=== PATIENT | female | born 1970 | race Asian ===

== ENCOUNTER 2019-01-13 08:02 | Outpatient (CLI) | payer OTHER | END 2019-01-13 23:59 | disposition home or self-care (01) | LOC: CFH 08:02 | PROVIDERS: ATTEND Nurse Practitioner | DX: Z12.31 Encounter for screening mammogram for malignant neoplasm of breast (principal) | CPT/HCPCS: 77067 ==

== ENCOUNTER → 2020-03-06 | Outpatient (CLI) | payer OTHER ==
[~2020-03-06] MED LIST: LEVO200T PO; MV-M1TAB16 PO; ROSU40TA PO; TRAN650T3 PO; UBID100C41 PO
[2020-03-06 16:57] LABS: BASOPHILS # (AUTO) 0.02 x10^3/uL (0-0.1); BASOPHILS % (AUTO) 0 % (0-1); EOSINOPHILS # (AUTO) 0.37 x10^3/uL (0-0.4); EOSINOPHILS % (AUTO) 5 % (1-7); LYMPHOCYTES # (AUTO) 2.57 x10^3/uL (1-3.4); LYMPHOCYTES % (AUTO) 35 % (22-44); MD NO; MEAN CORPUSCULAR HEMOGLOBIN 29.7 pg (27.0-34.8); MEAN CORPUSCULAR HGB CONC 33.3 g/dL (32.4-35.8); MEAN CORPUSCULAR VOLUME 89.3 fL (80-100); MEAN PLATELET VOLUME 8.2 fL (7.4-10.4); MONOCYTES # (AUTO) 0.41 x10^3/uL (0.2-0.8); MONOCYTES % (AUTO) 6 % (2-9); NEUTROPHILS # (AUTO) 3.98 x10^3/uL (1.8-6.8); NEUTROPHILS % (AUTO) 54 % (42-75); PLATELET COUNT 303 x10^3/uL (130-400); RED BLOOD COUNT 4.08 x10^6/uL (3.82-5.3)
[2020-03-06 17:05] LABS: ALANINE AMINOTRANSFERASE 22 U/L (12-78); ALBUMIN 3.5 g/dL (3.4-5.0); CALCIUM 10.2 mg/dL (8.5-10.1); CREATININE 0.79 mg/dL (0.55-1.02)
[2020-03-06 17:10] LABS: ALKALINE PHOSPHATASE 112 U/L (45-117); BILIRUBIN,TOTAL 0.4 mg/dL (0.2-1.0); TOTAL PROTEIN 7.9 g/dL (6.4-8.2)
[2020-03-06 17:14] LABS: MICROSCOPIC AUTO
[2020-03-06 17:26] LABS: ANION GAP 4 mmol/L (5-15); CHLORIDE 107 mmol/L (98-107)
== END | disposition home or self-care (01) ==
LOC: STAR 15:44
PROVIDERS: ATTEND Obstetrics & Gynecology
DX: Z01.812 Encounter for preprocedural laboratory examination (principal); Z20.828 Contact with and (suspected) exposure to other viral communicable diseases; N92.0 Excessive and frequent menstruation with regular cycle
CPT/HCPCS: 36415; 80053; 81001; 84702; 85025; 87077; 87086; 87186; 87635

== ENCOUNTER 2020-03-10 05:43 | Day surgery (SDC) | payer OTHER ==
[~2020-03-10] VITALS: Ht 157.5 cm; Wt 77.0 kg
[2020-03-10 06:38] VITALS: BP 142/90
[2020-03-10] MEDS ORDERED: LACTATED RINGERS 1,000 ML IV SCH (06:43)
[2020-03-10] MEDS ORDERED: CHLORHEXIDINE 15 ML UDC MM STA (06:44)
[2020-03-10] MEDS ORDERED: CHLORHEXIDINE 15 ML UDC ONE (06:45)
[2020-03-10] MEDS ORDERED: BUPIVACAINE/PF 0.25% ONE (06:55)
[2020-03-10] MEDS ORDERED: EPINEPHRINE 1 MG/ML, 1ML ONE (06:55)
[2020-03-10] MEDS ORDERED: SILVER NITRATE STICK TP ONE (06:55)
[2020-03-10] MEDS ORDERED: MIDAZOLAM 1 MG/ML, 2ML ONE (06:56)
[2020-03-10] MEDS ORDERED: FENTANYL PF 100 MCG/2ML ONE ×2 (06:56→09:02)
[2020-03-10 07:06] LABS: HCG UR SG 1.014 (1.003-1.030)
[2020-03-10] MEDS ORDERED: LIDOCAINE PF 2%, 5ML ONE (07:44)
[2020-03-10] MEDS ORDERED: PROPOFOL 10 MG/ML, 20ML ONE (08:24)
[2020-03-10] MEDS ORDERED: DEXAMETHASONE 4 MG/ML, 1ML ONE (08:24)
[2020-03-10] MEDS ORDERED: CEFAZOLIN 1,000 MG ONE (08:24)
[2020-03-10] MEDS ORDERED: ONDANSETRON 2MG/ML, 2ML ONE (08:24)
[2020-03-10] MEDS ORDERED: PROMETHAZINE 25 MG SUPP PR PRN (08:30)
[2020-03-10] MEDS ORDERED: ONDANSETRON 2MG/ML, 2ML IVPush PRN (08:30)
[2020-03-10] MEDS ORDERED: PROMETHAZINE 25 MG/ML, 1ML IVPush PRN (08:30)
[2020-03-10] MEDS ORDERED: LABETALOL 5MG/ML, 20ML IV PRN (08:30)
[2020-03-10] MEDS ORDERED: hydrALAzine 20 MG/ML, 1ML IV PRN (08:30)
[2020-03-10] MEDS ORDERED: HYDROmorphone 1 MG/ML, 1ML INJ IVPush PRN (08:30)
[2020-03-10] MEDS ORDERED: ACETAMINOPHEN 325 MG TABLET PO PRN (08:30)
[2020-03-10] MEDS ORDERED: METOPROLOL 1 MG/ML, 5ML IV PRN (08:30)
[2020-03-10] MEDS ORDERED: OXYcodone 5 MG/5 ML ORAL.SOL UDC ONE (09:02)
[2020-03-10] MEDS ORDERED: ACETAMINOPHEN 650 MG/20.3 ML UDC ONE (09:02)
[2020-03-10] MEDS: OXYcodone 5 MG/5 ML ORAL.SOL UDC PO PRN ×2 (09:05→10:33)
[2020-03-10] MEDS: FENTANYL PF 100 MCG/2ML IV PRN ×2 (09:15→09:20)
[2020-03-10] MEDS ORDERED: KETOROLAC 30 MG/1 ML ONE (10:17)
[2020-03-10] MEDS ORDERED: KETOROLAC 30 MG/1 ML IVPush PRN (10:30)
== END 2020-03-10 12:00 | disposition home or self-care (01) ==
LOC: OUT 05:43
PROVIDERS: ATTEND Obstetrics & Gynecology
DX: N92.0 Excessive and frequent menstruation with regular cycle (principal); N84.0 Polyp of corpus uteri; G43.909 Migraine, unspecified, not intractable, without status migrainosus; E78.00 Pure hypercholesterolemia, unspecified; Z98.51 Tubal ligation status; Z98.890 Other specified postprocedural states; Z79.899 Other long term (current) drug therapy; Z82.49 Family history of ischemic heart disease and other diseases of the circulatory system
CPT/HCPCS: 36415; 58563; 81025; 86850; 86900; J0171; J0690; J1100; J1885; J2250; J2405; J2704; J3010; J3490; J7120

== ENCOUNTER 2020-11-29 20:55 | Emergency (ER) | payer OTHER ==
[~2020-11-29] VITALS: Ht 157.5 cm; Wt 78.1 kg
[2020-11-29 21:08] VITALS: BP 180/103
[2020-11-29] MEDS ORDERED: DIPH,PERTUSS(ACELL),TET VAC/PF 0.5 ML IM-VACC ONE ×2 (22:05→22:30)
--- NOTE | 2020-11-29 22:10 | NUR ---
Patient given discharge instructions and they have confirmed that they understand the instructions. Patient ambulatory with steady gait.
== END 2020-11-29 22:12 | disposition home or self-care (01) ==
LOC: ED 22:11
DX: S61.217A Laceration without foreign body of left little finger without damage to nail, initial encounter (principal); X58.XXXA Exposure to other specified factors, initial encounter; Y93.89 Activity, other specified; Y92.410 Unspecified street and highway as the place of occurrence of the external cause; Y99.0 Civilian activity done for income or pay
CPT/HCPCS: 12001; 90471; 90715; 99283